=== PATIENT | male | born 1960 | race Caucasian/White ===

== ENCOUNTER 2025-05-20 15:16 | Outpatient (AMB) | payer OTHER, SELFPAY ==
--- NOTE | 2025-05-20 15:27 | A.OFFVIS_ITS ---
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 As a child he would stiffen up and if he wasn't moving around and limber. He would have difficulty getting started and had inabi lity to relax his muscles. He generally functions well and has learned to get around it but occasionally if he is going to do certain activities he uses Mexiletine 2 in am. He has it triggered by cold weather and exercise. Mostly affects legs and hands and occasionally in neck. It lasts 2- 3secs then he is fine. ?He uses a CPAP device in the last 3 months with a diagnosis of obstructive sleep apnea. He has hypertension and hyperlipidemia but has not yet started this step. His and children notes that his memory is not as sharp and he is concerned about that. Has been stable for 2 years. . [facility] Medical History (Updated 05/20/25 @ 15:30 by kEta Felix MD) Hyperlipidemia Hypertension RONN on CPAP MCI (mild cognitive impairment) Myotonia congenita Review of Systems Const Details: Sleep:? Difficulty getting to sleep?denies.? Difficulty maintaining sleep?admits .? Urge to move legs?denies.? Teeth grinding?denies.? Shouting or Kicking during sleep?denies.? Abnormal behavior during sleep?denies.? Excessive sleep?denies.? Snoring?admits.? Daytime sleepiness?denies.? ?? General/Constitutional:? Change in appetite?denies.? Chills?denies.? Fatigue?admits.? Fever?denies .? Weight gain?denies.? Weight loss?denies.? ?? Ophthalmologic:? Blurred vision?denies.? Diminished visual acuity?denies.? ?? ENT:? Stuffiness?denies.? Decreased hearing?denies.? Dry mouth?denies.? Ear pain?denies.? Nosebleed?denies.? Ringing in the ears?denies.? Sinus pain?denies .? Sore throat?denies.? Swollen glands?denies.? ?? Endocrine:? Cold intolerance?denies.? Excessive thirst?denies.? Frequent urination? denies.? Heat intolerance?denies.? ?? Respiratory:? Shortness of breath?denies.? Chest pain?denies.? Cough?denies.? ?? Breast:? Breast lump?denies.? Nipple discharge?denies.? ?? Cardiovascular:? Chest pain at rest?denies.? Chest pain with exertion?denies.? Claudication?denies.? Dizziness?denies.? Fluid accumulation in the legs?denies.? Irregular heartbeat?denies.? Palpitations?denies.? ?? Gastrointestinal:? Abdominal pain?denies.? Constipation?denies.? Diarrhea?denies.? Difficulty swallowing?denies.? Heartburn?denies.? Nausea?denies.? Rectal bleeding?denies.? ?? Hematology:? Easy bruising?denies.? Prolonged bleeding?denies.? ?? Genitourinary:? Frequent urination?denies.? Urgency?denies.? Incontinence?denies.? Erectile Dysfunction?denies.? ?? Musculoskeletal:? Neck pain?denies.? Back pain?denies.? Muscle aches?Muscle stiffness.? Painful joints?denies.? Sciatica?denies.? Weakness?denies.? ?? Podiatric:? Difficulty walking?denies.? Foot numbness?denies.? ?? Neurologic:? Difficulty swallowing?denies.? Balance difficulty?denies.? Coordination? normal.? Difficulty speaking?denies.? Dizziness?denies.? Fainting?denies.? Gait abnormality?denies.? Headache?denies.? Loss of strength?denies.? Loss of use of extremity?denies.? Low back pain?denies.? Memory loss?admits.? Seizures?denies.? Tics?denies.? Tingling/Numbness?denies.? Transient loss of vision?denies.? Tremor?denies.? ?? Psychiatric:? Anxiety?admits.? Auditory/visual hallucinations?denies.? Delusions? Agitation or aggression.? Depressed mood?denies.? Stressors?admits.? Substance abuse?denies.? Suicidal thoughts?denies.?? Physical Exam Neuro Other: Neurological: ? Abnormal neurological findings:?generalized muscular hypertrophy. No weakness. No percussion or action myotonia..? Mental Status:?alert and oriented X 3,?Normal attention, orientation, memory and affect.? Cranial Nerves:?Pupils are equal, round and reactive to light. Fundoscopy shows normal disc bilaterally. External occular muscles are intact. Visual vergara are full, no ptosis. Face is symmetrical, no facial weakness or droop. Facial sensations are normal. Tongue protrudes in midline. Palate elevates symmetrically. Shoulder shrugging is normal..? Motor Examination:?Normal muscle tone, bulk and strength,?No atrophy or fasciculations,?No drift of the extended upper extremities,?Deep tendon reflexes are 2+?,?Plantars are flexor?.? Motor Strength:? Proximal Muscles (out of 5): ?5 ? Distal Muscles (out of 5): ?5 ? Neck Flexors (out of 5): ?5 ? Neck Extensors (out of 5): ?5 ? Deltoid (out of 5): ?5 ? Biceps (out of 5): ?5 ? Triceps (out of 5): ?5 ? Serratus Anterior (out of 5): ?5 ? Wrist Extensors (out of 5): ?5 ? APB (out of 5): ?5 ? Finger Spread (out of 5): ?5 ? Ileopsoas (out of 5): ?5 ? Quadriceps (out of 5): ?5 ? Hamstrings (out of 5): ?5 ? Tibialis Anterior (out of 5): ?5 ? Peronei (out of 5): ?5 ? EDB (out of 5): ?5 ? Gastrocnemius (out of 5): ?5 ? Straight Leg Raising:?90 degrees.? Sensory Exam:?Normal light touch, temperature, pinprick, vibration and joint-position sensations?,?Rhomberg sign is absent.? Coordination:?no ataxia,?no titubation,?[id number], zwss-[id number] test and rapid alternating movements were normal.? Gait Exam:?Within normal limits.? Cerebellar Signs:?Lalcbf-gy-mwcb and lcko-mg-sjvu is normal,?no dysdiadochokinesia?.? Extrapyramidal System:?No tremor, rigidity with normal facial expressions,?No bradykinesia, no bradyphrenia. Normal arm swing and posture. No propulsion or retropulsion.? Speech:?Normal,?no dysphasia or dysarthria..? Mini Mental Status Exam: ? Level of Consciousness:?Alert.? Orientation:?Knows correct year, month, date, day and season,?Knows correct city, county and state. Knows correct location and floor.? Registration:?Able to register 3 objects.? Attention:?Serial 7's performed accurately.? Recall:?Able to recall 3 out of 3 objects.? Language:?Normal spontaneous speech, fluency, repetition,naming, comprehension, reading and writing.? Total Score ?30/30.? General Examination: ? GENERAL APPEARANCE:?normal,?in no acute distress.? HEAD:?normocephalic,?atraumatic.? EYES:?sclera non-icteric,?conjunctiva clear.? EARS:?auditory canal clear,?tympanic membrane intact, clear.? NOSE:?no lesions.? ORAL CAVITY:?gums normal,?mucosa moist,?no lesions.? THROAT:?clear.? NECK/THYROID:?no cervical lymphadenopathy,?thyroid normal,?neck supple, full range of motion,?no carotid bruit.? SKIN:?no rashes,?no significant birthmarks.? HEART:?S1, S2 normal,?no murmurs.? LUNGS:?clear anteriorly and posteriorly.? CHEST:?no gross rib deformity,?clear to auscultation.? BACK:?normal exam of spine.? EXTREMITIES:?no edema.? PERIPHERAL PULSES:?normal.? PSYCH:?alert, oriented,?cognitive function intact,?cooperative with exam.? 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 Code(s): G71.12 - Myotonia congenita Category: Medical (2) MCI (mild cognitive impairment): Comment: Stable memory Code(s): G31.84 - Mild cognitive impairment of uncertain or unknown etiology Category: Medical (3) RONN on CPAP: Code(s): G47.33 - Obstructive sleep apnea (adult) (pediatric); Z99.89 - Dependence on other enabling machines and devices Category: Medical Plan Continue Mexelitine 2 a day. Medications: New mexiletine 300 mg (2 x 150 mg) PO ONCE 180 caps 3RF 90 days Coding Level of Care Code New Pt Level 5 (70188) Diagnoses Myotonia congenita G71.12 MCI (mild cognitive impairment) G31.84 RONN on CPAP G47.33; Z99.89
--- OUTSIDE RECORDS SUMMARY | 2025-05-20 18:14 | XMS_ITS | Data Portability ---
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 Patient consented to video & audio visit Patient was located in the [facility]. Provider was located in the office. No other persons participated in the telemedicine visit except for the patient unless otherwise indicated here. Total time of visit was 32 minutes. [email or web address] Not available 06/24/2024 14:39:16 Plan of Treatment Reminders Order Date Submit Date Provider Last Modified By Organization Details Last Modified Time Details Appointments PE EST 2025 09:15A M aJun Calderon PA-C Not available Not available Not available Lab HbA1c (hemog lobin A1c), blood 2024 025 pmadden [facility] (Centralized Electronic Ordering - All Locations), Patient Can Go To The Location Of Their Choice, 04/08/2025 14:55:13 BMP, serum or plasma 2024 025 pmadden [facility] (Centralized Electronic Ordering - All Locations), Patient Can Go To The Location Of Their Choice, 04/08/2025 14:55:13 vitami n D, 25-hyd angela, total, serum 2024 PAUL [facility] (Centralized Electronic Ordering - All Locations), Patient Can Go To The Location Of Their Choice, 03/12/2025 08:07:20 HbA1c (hemog lobin A1c), blood 2024 PAUL [facility] (Centralized Electronic Ordering - All Locations), Patient Can Go To The Location Of Their Choice, 03/12/2025 08:07:19 lipid panel, serum 2024 PAUL [facility] (Centralized Electronic Ordering - All Locations), Patient Can Go To The Location Of Their Choice, 03/12/2025 08:07:18 CMP, serum or plasma 2024 PAUL [facility] (Centralized Electronic Ordering - All Locations), Patient Can Go To The Location Of Their Choice, 03/12/2025 08:07:18 CK (creat ine kinase ), total, serum 2024 PAUL [facility] (Centralized Electronic Ordering - All Locations), Patient Can Go To The Location Of Their Choice, 03/12/2025 08:07:19 HbA1c (hemog lobin A1c), blood 2023 PAUL [facility] (Centralized Electronic Ordering - All Locations), Patient Can Go To The Location Of Their Choice, 09/05/2024 06:08:11 TSH, ultra- sensit lionel, serum 2023 PAUL [facility] (Centralized Electronic Ordering - All Locations), Patient Can Go To The Location Of Their Choice, 09/05/2024 06:08:12 vitami n D, 25-hyd angela, total, serum 2023 PAUL [facility], [address], [place], [id number], 09/05/2024 06:08:12 lipid panel, serum 2023 PAUL [facility] (Centralized Electronic Ordering - All Locations), Patient Can Go To The Location Of Their Choice, 2025 06:08:11 CMP, serum or plasma 2023 024 PAUL [facility] (Centralized Electronic Ordering - All Locations), Patient Can Go To The Location Of Their Choice, [id number] 09/05/2024 06:08:10 TSH, serum or plasma 2023 024 PAUL [facility], [address], [address], [place], [address], 07/31/2023 15:47:59 lipid panel, serum 2023 024 PAUL [facility], [address], [address], [place], [id number], 07/31/2023 15:43:42 CMP, serum or plasma 2023 024 PAUL [facility], [address], [address], [place], [id number], 07/31/2023 15:43:40 CBC w/ auto diff 2023 024 PAUL [facility], [address], [address], [place], [place], [id number], 07/31/2023 16:24:05 HbA1c (hemog lobin A1c), blood 2023 024 PAUL [facility], [address], [address], [place], [address], 07/31/2023 18:09:53 testos terone , total, serum 2023 024 PALU [facility], [address], [address], [place], [address], 07/31/2023 15:47:58 Referral nutrit ionist /amadeo martin referr al 2024 025 Not available 09/11/2024 15:54:13 nutrit ionist /amadeo martin referr al 2023 024 Not available 07/23/2023 17:23:49 Procedures None record ed. Surgeries None record ed. Imaging None record ed. Medication Orders olmesa rtan 20 mg tablet 2024 025 akiko [facility] #[id number], [address] [place] [address], [id number], 04/06/2025 16:02:52 cholec alcife rol (vitam in D3) 1,250 mcg (50,00 0 unit) capsul e 2024 025 PAUL [id number], [address] [place] [address], [id number], 03/11/2025 08:57:50 sertra line 50 mg tablet 2023 024 [email or web address] [id number], [address] [place] [address], [id number], 09/11/2024 08:55:51 silden afil 50 mg tablet 2023 [id number] [address] [place], [address], 07/23/2023 14:04:35 Patient Targets Encounter Date Encounter Id Patient Goals Patient Target Last Modified By Organization Details Last Modified Time 07/23/2023 [id number] [facility] goal of Blood Pressure 140 / 90 Not available Not available Not available [facility] goal of Exercise level Not available Not available Not available [facility] goal of Tobacco Smoking Status Not available Not available Not available [facility] goal of Excess Body Weight Loss % 5 Not available Not available Not available 07/23/2023 [id number] Pt advised and agrees to eat a low salt low fat diet; to do moderate exercise (such as walking) 150 minutes per week; to limit alcohol intake (goal of 2 drinks per day or less for men or 1 for woman). and to monitor dietary sodium. Will monitor home blood pressures and bring readings to appointments. Patient preferences and goals incorporated in plan and updated/modified as needed to reflect progress toward goal. Pt advised and agrees to work on self-monitoring behaviors; begin an appropriate diet for weight loss (such as a low carbohydrate diet), to do moderate exercise (such as walking) for approximately 150 minutes per week; and to identify desirable and timely rewards that will reinforce achievement of specific weight loss goals. pmadden Not available 07/23/2023 13:50:49 09/11/2024 [id number] [facility] goal of Blood Pressure 140 / 90 Not available Not available Not available [facility] goal of Exercise level Not available Not available Not available [facility] goal of Tobacco Smoking Status Not available Not available Not available [facility] goal of Excess Body Weight Loss % 5 Not available Not available Not available Ongoing of LDL Direct <100 Not available Not available Not available Ongoing of LDL Direct yearly Not available Not available Not available 09/11/2024 [id number] Pt advised and agrees to work on self-monitoring behaviors; begin an appropriate diet for weight loss (such as a low carbohydrate diet), to do moderate exercise (such as walking) for approximately 150 minutes per week; and to identify desirable and timely rewards that will reinforce achievement of specific weight loss goals. Pt agrees to follow low fat diet, avoid saturated fats , decrease carbohydrate intake to 45 - 50 gm per meal , pt agrees to develop a regular pattern of exercise such as walking 30 minutes a day 3 times a week, Pt will keep a record of exercise and activity level Patient preferences and goals incorporated in plan and updated/modified as needed to reflect progress toward goal. Pt advised and agrees to eat a low salt low fat diet; to do moderate exercise (such as walking) 150 minutes per week; to limit alcohol intake (goal of 2 drinks per day or less for men or 1 for woman). and to monitor dietary sodium. Will monitor home blood pressures and bring readings to appointments. Patient preferences and goals incorporated in plan and updated/modified as needed to reflect progress toward goal. 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 and to monitor dietary sodium. Will monitor home blood pressures and bring readings to appointments. Patient preferences and goals incorporated in plan and updated/modified as needed to reflect progress toward goal. pmadden Not available 03/11/2025 09:46:53 Patient Instructions Encounter Date Encounter Id Patient Instructions Last Modified By Organization Details Last Modified Time 07/23/2023 [id number] A healthy lifestyle: care instructions pmadden Not available 07/23/2023 13:58:41 Well Visit 50 to 65: Care Instructions pmadden Not available 07/23/2023 13:58:42 Starting a Weight-Loss Plan: Care Instructions pmadden Not available 07/23/2023 13:58:42 Nutrition Referral and Weight Management Follow-up Information pmadden Not available 07/23/2023 13:58:41 Medications (OTC , herbal therapies, supplements) reviewed and reconciled with patient and or caregiver, including potential side effects, drug interactions, instructions, and the consequences of not taking medication. Reviewed potential barriers to medication adherence, such as side effects from medication or cost of medication. pmadden Not available 07/23/2023 13:22:07 06/24/2024 [id number] learning about stress pmadden Not available 06/24/2024 14:43:34 Mental Health Information pmadden Not available 06/24/2024 14:43:34 Medications (OTC , herbal therapies, supplements) reviewed and reconciled with patient and or caregiver, including potential side effects, drug interactions, instructions, and the consequences of not taking medication. Reviewed potential barriers to medication adherence, such as side effects from medication or cost of medication. pmadden Not available 06/24/2024 14:43:47 09/11/2024 [id number] Well Visit 50 to 65: Care Instructions pmadden Not available 09/11/2024 10:10:39 A healthy lifestyle: care instructions pmadden Not available 09/11/2024 10:10:39 Starting a Weight-Loss Plan: Care Instructions pmadden Not available 09/11/2024 10:10:39 Nutrition Referral and Weight Management Follow-up Information pmadden Not available 09/11/2024 10:10:39 Medications (OTC , herbal therapies, supplements) reviewed and reconciled with patient and or caregiver, including potential side effects, drug interactions, instructions, and the consequences of not taking medication. Reviewed potential barriers to medication adherence, such as side effects from medication or cost of medication. pmadden Not available 09/11/2024 10:09:44 03/11/2025 [id number] dash diet: care instructions pmadden Not available 03/11/2025 09:45:45 high blood pressure: care instructions pmadden Not available 03/11/2025 09:45:45 Medications (OTC , herbal therapies, supplements) reviewed and reconciled with patient and or caregiver, including potential side effects, drug interactions, instructions, and the consequences of not taking medication. Reviewed potential barriers to medication adherence, such as side effects from medication or cost of medication. pmadden Not available 03/11/2025 09:34:37 04/08/2025 [id number] potassium-restri c gilles diet: care instructions pmadden Not available 04/08/2025 14:55:13 Medications (OTC , herbal therapies, supplements) reviewed and reconciled with patient and or caregiver, including potential side effects, drug interactions, instructions, and the consequences of not taking medication. Reviewed potential barriers to medication adherence, such as side effects from medication or cost of medication. 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 Refer ral for Body mass index 30+ - obesity Referring Physician: Jaun Calderon, Internal Medicine, Encounter Date: 09/11/2024 Results Created Date Observation Date Name Description Value Unit Range Abnormal Flag Note LastModifiedBy Organization Detail LastModifiedTime 07/31/19 24 07/31/2023 COMPR EHENS LIONEL METAB OLIC PANL glucose 104 mg/dL (70-99 ) high Not Available [facility] (Centralized Electronic Ordering - All Locations) Patient Can Go To The Location Of Their Choice, [id number] 07/31/2023 15:43:40 07/31/19 24 07/31/2023 COMPR EHENS LIONEL METAB OLIC PANL BUN 19 mg/dL (8-23) Not Available [facility] (Centralized Electronic Ordering - All Locations) Patient Can Go To The Location Of Their Choice, 07/31/2023 15:43:40 07/31/19 24 07/31/2023 COMPR EHENS LIONEL METAB OLIC PANL creatinine 1.4 mg/dL (0.7-1 .2) high Not Available [facility] (Centralized Electronic Ordering - All Locations) Patient Can Go To The Location Of Their Choice, 07/31/2023 15:43:40 07/31/19 24 07/31/2023 COMPR EHENS LIONEL METAB OLIC PANL sodium 141 mmol/ L (133-1 45) Not Available [facility] (Centralized Electronic Ordering - All Locations) Patient Can Go To The Location Of Their Choice, 07/31/2023 15:43:40 07/31/19 24 07/31/2023 COMPR EHENS LIONEL METAB OLIC PANL potassium 4.6 mmol/ L (3.6-5 .2) Not Available [facility] (Centralized Electronic Ordering - All Locations) Patient Can Go To The Location Of Their Choice, 07/31/2023 15:43:40 07/31/19 24 07/31/2023 COMPR EHENS LIONEL METAB OLIC PANL chloride 104 mmol/ L (98-10 7) Not Available [facility] (Centralized Electronic Ordering - All Locations) Patient Can Go To The Location Of Their Choice, 07/31/2023 15:43:40 07/31/19 24 07/31/2023 COMPR EHENS LIONEL METAB OLIC PANL bicarbonate 27 mmol/ L (22-29 ) Not Available [facility] (Centralized Electronic Ordering - All Locations) Patient Can Go To The Location Of Their Choice, 07/31/2023 15:43:40 07/31/1907/31/2023 COMPR EHENS LIONEL METAB OLIC PANL anion gap 10 (4-17) Not Available [facility] (Centralized Electronic Ordering - All Locations) Patient Can Go To The Location Of Their Choice, 07/31/2023 15:43:40 07/31/19 24 07/31/2023 COMPR EHENS LIONEL METAB OLIC PANL albumin 4.1 gm/dL (3.4-4 .8) Not Available [facility] (Centralized Electronic Ordering - All Locations) Patient Can Go To The Location Of Their Choice, 07/31/2023 15:43:40 07/31/19 24 07/31/2023 COMPR EHENS LIONEL METAB OLIC PANL calcium 9.3 mg/dL (8.6-1 0.5) Not Available [facility] (Centralized Electronic Ordering - All Locations) Patient Can Go To The Location Of Their Choice, 07/31/2023 15:43:40 07/31/19 24 07/31/2023 COMPR EHENS LIONEL METAB OLIC PANL bilirubin,to yobani 0.5 mg/dL (0-1.2 ) Not Available [facility] (Centralized Electronic Ordering - All Locations) Patient Can Go To The Location Of Their Choice, 07/31/2023 15:43:40 07/31/19 24 07/31/2023 COMPR EHENS LIONEL METAB OLIC PANL total protein 6.8 gm/dL (6.2-8 .2) Not Available [facility] ([facility]ized Electronic Ordering - All Locations) Patient Can Go To The Location Of Their Choice, 07/31/2023 15:43:40 07/31/19 24 07/31/2023 COMPR EHENS LIONEL METAB OLIC PANL Ag ratio 1.5 Not Available [facility] (Centralized Electronic Ordering - All Locations) Patient Can Go To The Location Of Their Choice, 07/31/2023 15:43:40 07/31/19 24 07/31/2023 COMPR EHENS LIONEL METAB OLIC PANL AST 26 U/L (0-40) Not Available [facility] ([facility]ized Electronic Ordering - All Locations) Patient Can Go To The Location Of Their Choice, 07/31/2023 15:43:40 07/31/19 24 07/31/2023 COMPR EHENS LIONEL METAB OLIC PANL alk phos 65 U/L (40-12 9) Not Available [facility] ([facility] Ordering - All Locations) Patient Can Go To The Location Of Their Choice, 07/31/2023 15:43:40 07/31/19 24 07/31/2023 COMPR EHENS LIONEL METAB OLIC PANL ALT 33 U/L (0-41) Not Available [facility] ([facility] Electronic Ordering - All Locations) Patient Can Go To The Location Of Their Choice, 07/31/2023 15:43:40 07/31/1907/31/2023 COMPR EHENS LIONEL METAB OLIC PANL estimated GFR creatinine 59 mL/mi n/1.7 3_M2 Creat inine based estim ated glome rular filtr ation (eGFR ) in adult s is calcu lated using the Natio nal Kidne y Found ation recom leo d 2020 CKD-E PI equat ion. Estim ates GFR from serum creat inine , age and sex. Not Available [facility] ([facility]ized Electronic Ordering - All Locations) Patient Can Go To The Location Of Their Choice, 07/31/2023 15:43:40 07/31/1907/31/2023 LIPID PANEL cholesterol, total 249 mg/dL (<200) high Not Available [facility] ([facility] - All Locations) Patient Can Go To The Location Of Their Choice, 07/31/2023 15:43:42 07/31/1907/31/2023 LIPID PANEL triglyceride 204 mg/dL (<150) high Not Available [facility] ([facility] Locations) Patient Can Go To The Location Of Their Choice, 07/31/2023 15:43:42 07/31/1907/31/2023 LIPID PANEL HDL chol 59 mg/dL (>39) Not Available [facility] ([facility] Electronic Ordering - All Locations) Patient Can Go To The Location Of Their Choice, 07/31/2023 15:43:42 07/31/1907/31/2023 LIPID PANEL LDL cholesterol, calculated 149 mg/dL (0-130 ) high Not Available [facility] ([facility] Electronic Ordering - All Locations) Patient Can Go To The Location Of Their Choice, 07/31/2023 15:43:42 07/31/1907/31/2023 LIPID PANEL non HDL cholesterol (calc) 190 mg/dL (<160) high Not Available [facility] ([facility] - All Locations) Patient Can Go To The Location Of Their Choice, 07/31/2023 15:43:42 07/31/1907/31/2023 TESTO STERO NE testosterone 392 NG/dL (280-8 00) Not Available [facility] ([facility] Ordering - All Locations) Patient Can Go To The Location Of Their Choice, 07/31/2023 15:47:58 07/31/1907/31/2023 TSH WITH REFLE X TO FT4 TSH 7.38 uIU/m L (0.4-4 .2) high Not Available [facility] ([facility] Order[facility] - All Locations) Patient Can Go To The Location Of Their Choice, 07/31/2023 15:47:59 07/31/1907/31/2023 FREE T4 free T4 1.09 NG/dL (0.70- 1.80) Not Available [facility] ([facility] Ordering - All Locations) Patient Can Go To The Location Of Their Choice, 07/31/2023 16:15:24 07/31/1907/31/2023 COMPL ETE BLOOD COUNT WBC 7.3 K/mm3 (4.0-1 1.0) Not Available [facility] ([facility] Ordering - All Locations) Patient Can Go To The Location Of Their Choice, 07/31/2023 16:24:05 07/31/1907/31/2023 COMPL ETE BLOOD COUNT RBC 5.29 M/mm3 (4.70- 6.10) Not Available [facility] ([facility] Ordering - All Locations) Patient Can Go To The Location Of Their Choice, 07/31/2023 16:24:05 07/31/1907/31/2023 COMPL ETE BLOOD COUNT HGB 15.9 gm/dL (13.7- 17.1) Not Available [facility] ([facility] Ordering - All Locations) Patient Can Go To The Location Of Their Choice, 07/31/2023 16:24:07/31/1907/31/2023 COMPL ETE BLOOD COUNT HCT 48.9 % (40.5- 50.0) Not Available [facility] ([facility] Ordering - All Locations) Patient Can Go To The Location Of Their Choice, 07/31/2023 16:24:05 07/31/1907/31/2023 COMPL ETE BLOOD COUNT MCV 92.4 fL (80.0- 94.0) Not Available [facility] ([facility] Order[facility] - All Locations) Patient Can Go To The Location Of Their Choice, 07/31/2023 16:24:07/31/1907/31/2023 COMPL ETE BLOOD COUNT MCH 30.1 pg (27.0- 34.0) Not Available [facility] ([facility] Ordering - All Locations) Patient Can Go To The Location Of Their Choice, 07/31/2023 16:24:07/31/1907/31/2023 COMPL ETE BLOOD COUNT MCHC 32.5 g/dL (33.0- 37.0) low Not Available [facility] ([facility] Order[facility] - All Locations) Patient Can Go To The Location Of Their Choice, 07/31/2023 16:24:07/31/1907/31/2023 COMPL ETE BLOOD COUNT plt 271 K/mm3 (150-4 60) Not Available [facility] ([facility] Order[facility] - All Locations) Patient Can Go To The Location Of Their Choice, 07/31/2023 16:24:07/31/1907/31/2023 COMPL ETE BLOOD COUNT RDW-SD 42.4 fL (<47.0 ) Not Available [facility] ([facility] Order[facility] - All Locations) Patient Can Go To The Location Of Their Choice, 07/31/2023 16:24:07/31/1907/31/2023 COMPL ETE BLOOD COUNT MPV 9.9 fL (9.4-1 2.4) Not Available [facility] ([facility] Order[facility] - All Locations) Patient Can Go To The Location Of Their Choice, 07/31/2023 16:24:07/31/1907/31/2023 COMPL ETE BLOOD COUNT automated NRBC 0.0 #/100 _WBC' s Not Available [facility] ([facility] Ordering - All Locations) Patient Can Go To The Location Of Their Choice, 07/31/2023 16:24:07/31/1907/31/2023 COMPL ETE BLOOD COUNT abs. NRBC 0.0 K/mm3 Not Available [facility] ([facility] Ordering - All Locations) Patient Can Go To The Location Of Their Choice, 07/31/2023 16:24:07/31/1907/31/2023 HEMOG LOBIN A1C hemoglobin A1C 5.6 % (4.0-5 .6) MONIT ORING : In known diabe tic patie nts, hemog lobin A1c targe ts shoul d be discu ssed with healt h care provi ciro. DIAGN OSTIC USE: The Ameri can Diabe sandie Assoc iatio n (ADA) and the World Healt h Organ izati on (WHO) recom mend the use of HbA1c to diagn ose diabe sandie using a thres hold of 6.5%. Patie nts who have an HbA1c betwe en 5.7% and 6.4% are consi dered at incre ased risk for devel oping diabe sandie in the futbrina krysta CAUTI ON: False ly low HbA1c resul ts may be obser ida in patie nts with hemol ytic anemi a, homoz ygous forms of abnor mal hemog lobin (e.g. SS, CC, SC), pregn gabriel, recen t blood loss or hemog lobin F great er than 7%. Fruct osami ne may be used as an alter fili test in these cases . REFER ENCE: ADA: Stand ards of Medic al Care in Diabe sandie 2019, The Journ al of Clini xavier and Appli ed Resea rc and Educa tion Volum e 43, Suppl ement 1 Not Available [facility] ([facility]ized [facility] Ordering - All Locations) Patient Can Go To The Location Of Their Choice, [id number] 07/31/2023 18:09:53 09/04/19 25 09/04/2024 COMP. METAB OLIC PANEL (14) glucose 111 mg/dL 70-99 above high normal Not Available [facility] ([facility]) [address] [facility], [place], [address], 09/05/2024 06:08:10 09/04/19 25 09/04/2024 COMP. METAB OLIC PANEL (14) BUN 20 mg/dL 8-27 normal Not Available [facility] ([facility]) [address] [facility], [place], [address], 09/05/2024 06:08:10 09/04/19 25 09/04/2024 COMP. METAB OLIC PANEL (14) creatinine 1.36 mg/dL 0.76-1 .27 above high normal Not Available [facility] ([facility]) [address] [place], [address], 09/05/2024 06:08:10 09/04/19 25 09/04/2024 COMP. METAB OLIC PANEL (14) eGFR 59 mL/mi n/1.7 3 >59 below low normal Not Available [facility] ([facility]) [address] [facility], [place], [address], 09/05/2024 06:08:10 09/04/19 25 09/04/2024 COMP. METAB OLIC PANEL (14) BUN/creatini ne ratio 15 10-24 normal Not Available [facility] ([facility]) [address] [facility], [place], [address], 09/05/2024 06:08:10 09/04/19 25 09/04/2024 COMP. METAB OLIC PANEL (14) sodium 143 mmol/ L 134-14 4 normal Not Available [facility] ([facility]) [address] [place], [address], 09/05/2024 06:08:10 09/04/19 25 09/04/2024 COMP. METAB OLIC PANEL (14) potassium 4.4 mmol/ L 3.5-5. 2 normal Not Available [facility] ([facility]) [address] [place], [address], 09/05/2024 06:08:10 09/04/19 25 09/04/2024 COMP. METAB OLIC PANEL (14) chloride 104 mmol/ L 96-106 normal Not Available [facility] ([facility]) [address] [place], [address], 09/05/2024 06:08:10 09/04/19 25 09/04/2024 COMP. METAB OLIC PANEL (14) carbon dioxide, total 25 mmol/ L 20-29 normal Not Available [facility] ([facility]) [address] [facility] [place], [address], 09/05/2024 06:08:10 09/04/19 25 09/04/2024 COMP. METAB OLIC PANEL (14) calcium 9.4 mg/dL 8.6-10 .2 normal Not Available [facility] ([facility]) [address] [facility] [place], [address], 09/05/2024 06:08:10 09/04/19 25 09/04/2024 COMP. METAB OLIC PANEL (14) protein, total 7.0 g/dL 6.0-8. 5 normal Not Available [facility] ([facility]) [address] [facility] [place], [address], 09/05/2024 06:08:10 09/04/19 25 09/04/2024 COMP. METAB OLIC PANEL (14) albumin 4.2 g/dL 3.9-4. 9 normal Not Available [facility] ([facility]) [address] [facility] [place], [address], 09/05/2024 06:08:10 09/04/19 25 09/04/2024 COMP. METAB OLIC PANEL (14) globulin, total 2.8 g/dL 1.5-4. 5 Not Available [facility] ([facility]) [address] [facility] [place], [address], 09/05/2024 06:08:10 09/04/19 25 09/04/2024 COMP. METAB OLIC PANEL (14) bilirubin, total 0.6 mg/dL 0.0-1. 2 normal Not Available [facility] ([facility]) [address] [facility] [place], [address], 09/05/2024 06:08:10 09/04/19 25 09/04/2024 COMP. METAB OLIC PANEL (14) alkaline phosphatase 76 IU/L 44-121 normal Not Available [facility] ([facility]) [address] [facility] [place], [address], 09/05/2024 06:08:10 09/04/19 25 09/04/2024 COMP. METAB OLIC PANEL (14) AST (SGOT) 32 IU/L 0-40 normal Not Available [facility] ([facility]) [address] [facility] [place], [address], 09/05/2024 06:08:10 09/04/19 25 09/04/2024 COMP. METAB OLIC PANEL (14) ALT (SGPT) 57 IU/L 0-44 above high normal Not Available [facility] ([facility]) [address] [facility] [place], [address], 09/05/2024 06:08:10 09/04/19 25 09/05/2024 LIPID PANEL cholesterol, total 281 mg/dL 100-19 9 above high normal Not Available [facility] ([facility]) [address] [place], [address], 09/05/2024 06:08:11 09/04/19 25 09/05/2024 LIPID PANEL triglyceride s 129 mg/dL 0-149 normal Not Available [facility] ([facility]) [address] [place], [address], 09/05/2024 06:08:11 09/04/19 25 09/05/2024 LIPID PANEL HDL cholesterol 67 mg/dL >39 normal Not Available [facility] ([facility]) [address] [place], [address], 09/05/2024 06:08:11 09/04/19 25 09/05/2024 LIPID PANEL VLDL cholesterol xavier 23 mg/dL 5-40 Not Available [facility] ([facility]) [address] [place], [address], 09/05/2024 06:08:11 09/04/19 25 09/05/2024 LIPID PANEL LDL chol calc ([facility]) 191 mg/dL 0-99 above high normal Not Available [facility] ([facility]) [address] [facility], [place], [address], 09/05/2024 06:08:11 09/04/19 25 09/05/2024 LIPID PANEL LDL calc comment: COMMEN T Consi ciro evalu ating for Famil ial Hyper elda stero lemia (FH), if clini karla indic ated. Not Available [facility] ([facility]) [address] [facility], [place], [address], 09/05/2024 06:08:11 09/04/19 25 09/04/2024 HEMOG LOBIN A1C hemoglobin A1C 5.7 % 4.8-5. 6 above high normal Predi abete s: 5.7 - 6.4 Diabe sandie: >6.4 Glyce naveen contr ol for adult s with diabe sandie: <7.0 Not Available [facility] ([facility]) [address] [facility], [place], [address], 09/05/2024 06:08:11 09/04/19 25 09/05/2024 VITAM IN D, 25-HY DROXY vitamin D, 25-hydroxy 11.2 NG/mL 30.0-1 00.0 below low normal Vitam in D defic iency has been defin ed by the Insti tute of Medic ine and an Endoc rine Socie ty pract ice guide line as a level of serum 25-OH vitam in D less than 20 ng/mL (1,2) . The Endoc rine Socie ty went on to furth er defin e vitam in D insuf ficie ncy as a level betwe en 21 and 29 ng/mL (2). 1. IOM (Inst itute of Medic ine). 2010. Dieta ry refer ence intak es for calci um and D. Aubrey salter [place]: The [facility] . 2. Miguel A RAMOS, Ricky felton [place], Karthik off-F errar i BOBO, et al. Evalu ation , treat ment, and preve ntion of vitam in D defic iency : an Endoc rine Socie ty clini xavier pract ice guide line. JCEM. 2010; 96(7) :1911 -30. Not Available [facility] ([facility]) [address] [facility] [place], [address], 09/05/2024 06:08:12 09/04/19 25 09/05/2024 TSH RFX ON ABNOR MAL TO FREE T4 TSH 5.130 uIU/m L 0.450- 4.500 above high normal Not Available [facility] ([facility]) [address] [facility] [place], [address], 09/05/2024 06:08:12 09/04/19 25 09/05/2024 TSH RFX ON ABNOR MAL TO FREE T4 T4,free (direct) 1.15 NG/dL 0.82-1 .77 normal Not Available [facility] ([facility]) [address] [place], [address], 09/05/2024 06:08:12 03/11/20 25 03/11/2025 COMP. METAB OLIC PANEL (14) glucose 105 mg/dL 70-99 above high normal Not Available [facility] ([facility]) [address] [place], [address], 03/12/2025 08:07:18 03/11/20 25 03/11/2025 COMP. METAB OLIC PANEL (14) BUN 14 mg/dL 8-27 normal Not Available [facility] ([facility]) [address] [place], [address], 03/12/2025 08:07:18 03/11/20 25 03/11/2025 COMP. METAB OLIC PANEL (14) creatinine 1.26 mg/dL 0.76-1 .27 normal Not Available [facility] ([facility]) [address] [place], [address], 03/12/2025 08:07:18 03/11/20 25 03/11/2025 COMP. METAB OLIC PANEL (14) eGFR 64 mL/mi n/1.7 3 >59 normal Not Available [facility] ([facility]) [address] [facility], [place], [address], 03/12/2025 08:07:18 03/11/20 25 03/11/2025 COMP. METAB OLIC PANEL (14) BUN/creatini ne ratio 11 10-24 normal Not Available [facility] ([facility]) [address] [facility], [place], [address], 03/12/2025 08:07:18 03/11/20 25 03/11/2025 COMP. METAB OLIC PANEL (14) sodium 144 mmol/ L 134-14 4 normal Not Available [facility] ([facility]) [address] [facility], [place], [address], 03/12/2025 08:07:18 03/11/20 25 03/11/2025 COMP. METAB OLIC PANEL (14) potassium 5.5 mmol/ L 3.5-5. 2 above high normal Not Available [facility] ([facility]) [address] [facility], [place], [address], 03/12/2025 08:07:18 03/11/20 25 03/11/2025 COMP. METAB OLIC PANEL (14) chloride 104 mmol/ L 96-106 normal Not Available [facility] ([facility]) [address] [facility], [place], [address], 03/12/2025 08:07:18 03/11/20 25 03/11/2025 COMP. METAB OLIC PANEL (14) carbon dioxide, total 22 mmol/ L 20-29 normal Not Available [facility] ([facility]) [address] [place], [address], 03/12/2025 08:07:18 03/11/20 25 03/11/2025 COMP. METAB OLIC PANEL (14) calcium 9.8 mg/dL 8.6-10 .2 normal Not Available [facility] ([facility]) [address] [place], [address], 03/12/2025 08:07:18 03/11/20 25 03/11/2025 COMP. METAB OLIC PANEL (14) protein, total 7.3 g/dL 6.0-8. 5 normal Not Available [facility] ([facility]) [address] [place], [address], 03/12/2025 08:07:18 03/11/20 25 03/11/2025 COMP. METAB OLIC PANEL (14) albumin 4.4 g/dL 3.9-4. 9 normal Not Available [facility] ([facility]) [address] [place], [address], 03/12/2025 08:07:18 03/11/20 25 03/11/2025 COMP. METAB OLIC PANEL (14) globulin, total 2.9 g/dL 1.5-4. 5 Not Available [facility] ([facility]) [address] [place], [address], 03/12/2025 08:07:18 03/11/20 25 03/11/2025 COMP. METAB OLIC PANEL (14) bilirubin, total 0.7 mg/dL 0.0-1. 2 normal Not Available [facility] ([facility]) [address] [place], [address], 03/12/2025 08:07:18 03/11/20 25 03/11/2025 COMP. METAB OLIC PANEL (14) alkaline phosphatase 79 IU/L 44-121 normal Not Available [facility] ([facility]) [address] [place], [address], 03/12/2025 08:07:18 03/11/20 25 03/11/2025 COMP. METAB OLIC PANEL (14) AST (SGOT) 29 IU/L 0-40 normal Not Available [facility] ([facility]) [address] [facility] [place], [address], 03/12/2025 08:07:18 03/11/20 25 03/11/2025 COMP. METAB OLIC PANEL (14) ALT (SGPT) 38 IU/L 0-44 normal Not Available [facility] ([facility]) [address] [facility] [place], [address], 03/12/2025 08:07:18 03/11/20 25 03/11/2025 LIPID PANEL cholesterol, total 266 mg/dL 100-19 9 above high normal Not Available [facility] ([facility]) [address] [facility] [place], [address], 03/12/2025 08:07:18 03/11/20 25 03/11/2025 LIPID PANEL triglyceride s 96 mg/dL 0-149 normal Not Available [facility] ([facility]) [address] [facility] [place], [address], 03/12/2025 08:07:18 03/11/20 25 03/11/2025 LIPID PANEL HDL cholesterol 75 mg/dL >39 normal Not Available [facility] ([facility]) [address] [facility] [place], [address], 03/12/2025 08:07:18 03/11/20 25 03/11/2025 LIPID PANEL VLDL cholesterol xavier 16 mg/dL 5-40 Not Available [facility] ([facility]) [address] [facility] [place], [address], 03/12/2025 08:07:18 03/11/20 25 03/11/2025 LIPID PANEL LDL chol calc ([facility]) 175 mg/dL 0-99 above high normal Not Available [facility] (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) [address] [facility] [place], [address], 03/12/2025 08:07:18 03/11/20 25 03/12/2025 CK, TOTAL creatine kinase,total 251 U/L 41-331 normal Not Available [facility] ([facility]) [address] [facility], [place], [address], 03/12/2025 08:07:19 03/11/2003/11/2025 HEMOG LOBIN A1C hemoglobin A1C 5.7 % 4.8-5. 6 above high normal Predi abete s: 5.7 - 6.4 Diabe sandie: >6.4 Glyce naveen contr ol for adult s with diabe sandie: <7.0 Not Available [facility] ([facility]) [address] [facility], [place], [address], 03/12/2025 08:07:19 03/11/2003/12/2025 VITAM IN D, 25-HY DROXY vitamin D, 25-hydroxy 44.3 NG/mL 30.0-1 00.0 Vitam in D defic iency has been defin ed by the Insti tute of Medic ine and an Endoc rine Socie ty pract ice guide line as a level of serum 25-OH vitam in D less than 20 ng/mL (1,2) . The Endoc rine Socie ty went on to furth er defin e vitam in D insuf ficie ncy as a level betwe en 21 and 29 ng/mL (2). 1. IOM (Inst itute of Medic ine). 2010. Dieta ry refer ence leigha es for calci um and D. Aubrey salter [place]: The Natio nal [facility] Press . 2. Miguel A lawson MF, Ricky ey [place], Karthik off-F errar i BOBO, et al. Evalu ation , treat ment, and preve ntion of vitam in D defic iency : an Endoc rine Socie ty clini xavier pract ice guide line. JCEM. 2010; 96(7) :1911 -30. Not Available [facility] ([facility]) [address] [facility] [place], [address], 03/12/2025 08:07:20 04/08/2004/09/2025 BASIC METAB OLIC PANEL (8) glucose 92 mg/dL 70-99 normal Not Available [facility] ([facility]) [address] [facility] [place], [address], 04/09/2025 08:07:43 04/08/2004/09/2025 BASIC METAB OLIC PANEL (8) BUN 22 mg/dL 8-27 normal Not Available [facility] ([facility]) [address] [facility] [place], [address], 04/09/2025 08:07:43 04/08/2004/09/2025 BASIC METAB OLIC PANEL (8) creatinine 1.16 mg/dL 0.76-1 .27 normal Not Available [facility] ([facility]) [address] [facility] [place], [address], 04/09/2025 08:07:43 04/08/2004/09/2025 BASIC METAB OLIC PANEL (8) eGFR 71 mL/mi n/1.7 3 >59 normal Not Available [facility] ([facility]) [address] [facility] [place], [address], 04/09/2025 08:07:43 04/08/2004/09/2025 BASIC METAB OLIC PANEL (8) BUN/creatini ne ratio 19 10-24 normal Not Available [facility] ([facility]) [address] [facility] [place], [address], 04/09/2025 08:07:43 04/08/2004/09/2025 BASIC METAB OLIC PANEL (8) sodium 145 mmol/ L 134-14 4 above high normal Not Available [facility] ([facility]) [address] [place], [address], 04/09/2025 08:07:43 04/08/2004/09/2025 BASIC METAB OLIC PANEL (8) potassium 4.2 mmol/ L 3.5-5. 2 normal Not Available [facility] ([facility]) [address] [place], [address], 04/09/2025 08:07:43 04/08/2004/09/2025 BASIC METAB OLIC PANEL (8) chloride 106 mmol/ L 96-106 normal Not Available [facility] ([facility]) [address] [place], [address], 04/09/2025 08:07:43 04/08/2004/09/2025 BASIC METAB OLIC PANEL (8) carbon dioxide, total 21 mmol/ L 20-29 normal Not Available [facility] ([facility]) [address] [place], [address], 04/09/2025 08:07:43 04/08/2004/09/2025 BASIC METAB OLIC PANEL (8) calcium 8.8 mg/dL 8.6-10 .2 normal Not Available [facility] ([facility]) [address] [place], [address], 04/09/2025 08:07:43 Result Notes None recorded. 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 Not Available [facility] 3 13:24:37 Hyperlipid emia 89991774 Active 2018 Not Available [facility] 3 13:24:37 Nasal congestion 70122366 Completed 201907/23/2023 Letty hernandes MA null, [facility] 4 13:06:00 Insomnia 075570900 Active 2019 Not Available [facility] 3 13:24:37 Anxiety 96359037 Active 2019 Not Available [facility] 3 13:24:37 Major depressive disorder 186071680 Active 2019 Not Available [facility] 3 13:24:37 Skin lesion 17285163 Active 2020 Not Available [facility] 3 13:24:37 Subclinica l hypothyroi dism 83121251 Active 2020 Not Available [facility] 3 13:24:37 Chronic kidney disease stage 3 426878843 Completed 202009/18/2022 [facility] 2020 GFR 59 Jaun Calderon PA-C [address], [place], [address] , [facility] 3 10:22:15 Prediabete s 252581084 Active 2021 Jaun Calderon PA-C [address], [place], [address] , [facility] 5 14:49:23 Hypertensi ve renal disease 76378169 Active 2021 Not Available [facility] 3 13:24:37 Chronic kidney disease stage 2 218602567 Active 2022 Not Available [facility] 3 13:24:37 History of polyp of colon 870514848 Active 2023 Jaun Calderon PA-C [address], [place], [address] , [facility] 4 13:20:50 Opposition al defiant disorder 67370428 Active 2023 Jaun Calderon PA-C [address], [place], [address] , [facility] 4 14:06:55 Harmful pattern of use of alcohol 17308801 Active 2023 Jauntonya Calderon PA-C [address] [facility] [address], [place], [address] , [facility] 4 14:42:06 Serum potassium level above reference range 393977289 Active 2024 Jauntonya Calderon PA-C [address] [facility] [address], [place], [address] , [facility] 5 15:47:29 Problem Notes None recorded. Procedures Surgical History Date Name Laterality Status Provider Name and Address Organization Details Recorded Time 4 Colonoscopy completed Roseann Oates [facility] 05/30/2024 08:46:58 9 Colonoscopy completed Karo Middleton [facility] 02/13/2019 10:17:47 2 [facility] 08:53:39 Imaging Results None recorded. Procedure Notes None recorded. Medical Equipment None Reported. Allergies No known drug allergies Medications Name Sig Start Date Stop Date Status Note LastModified by Organization Details LastModified Time amoxicillin 500 mg capsule TAKE 1 CAPSULES BY MOUTH BY MOUTH EVERY 8 HOURS UNTIL FINISHED 09/18 completed Not Available Not Available Not Available Delsym 12 hour 30 mg/5 mL oral suspension, extended release Take 10 mL every 12 hours by oral route as needed. 03/16 completed Not Available Not Available Not Available trazodone 50 mg tablet TAKE 1 TABLET BY MOUTH EVERY DAY 04/07 completed Not Available Not Available Not Available sildenafil 50 mg tablet Take 1 tablet every day by oral route as needed. 2023 active Not Available Not Available Not Avai lable azithromyci n 250 mg tablet TAKE 2 TABLETS BY MOUTH TODAY, THEN TAKE 1 TABLET DAILY FOR 4 DAYS 07/23 completed Not Available Not Available Not Available hydrocodone 5 mg-acetamin ophen 325 mg tablet TAKE 1 TABLET BY MOUTH EVERY 6 HOURS NEEDED 09/18 completed Not Available Not Available Not Available citalopram 20 mg tablet Take 1 tablet every day by oral route for 30 days. 11/25 completed Not Available Not Available Not Available benzonatate 100 mg capsule Take 1 capsule 3 times a day by oral route as directed for 5 days. 03/16 completed Not Available Not Available Not Available mexiletine 150 mg capsule TAKE 2 CAPSULES BY MOUTH EVERY 8 HOURS DIRECTED BY active PRN Not Available Not Available No t Available metronidazo le 0.75 % topical cream APPLY A THIN LAYER TO THE AFFECTED AREA(S) BY TOPICAL ROUTE 2 TIMES PER DAY IN THE MORNING AND EVENING 03/16 completed Not Available Not Available Not Available codeine 10 mg-guaifene sin 100 mg/5 mL oral liquid Take 10 mL every 4 hours by oral route as needed. 03/16 completed Not Available Not Available Not Available albuterol sulfate HFA 90 mcg/actuati on aerosol inhaler INHALE 2 PUFFS INTO THE LUNGS EVERY 4 HOURS FOR 30 DAYS 06/24 completed Not Available Not Available Not Available sertraline 50 mg tablet TAKE 1 TABLET BY MOUTH EVERY DAY FOR 30 DAYS 09/11 completed Not Available Not Available Not Available olmesartan 20 mg tablet TAKE 1 TABLET BY MOUTH EVERY DAY FOR 30 DAYS 2024 active Not Available Not Available Not Avai lable Saline Nasal 0.65 % spray aerosol Take 2 sprays 4 times a day by nasal route. 09/18 completed Not Available Not Available Not Available metronidazo le 1 % topical gel APPLY TO THE AFFECTED AREA(S) BY TOPICAL ROUTE ONCE DAILY ; RUB IN GENTLY AND COMPLETEL Y 10/03 completed Not Available Not Available Not Available hydrochloro thiazide 12.5 mg tablet TAKE 1 TABLET BY MOUTH EVERY DAY active Not Available Not Available No t Available cholecalcif james (vitamin D3) 1,250 mcg (50,000 unit) capsule TAKE 1 CAPSULE BY MOUTH EVERY WEEK FOR 56 DAYS 03/11 completed Not Available Not Available Not Available GaviLyte-G 236 gram-22.74 gram-6.74 gram-5.86 gram oral solution TAKE 8 OUNCE BY MOUTH DIRECTED FOLLOW PREP INSTRUCTI ONS GIVEN BY YOUR DOCTOR'S OFFICE 06/24 completed Not Available Not Available Not Available Fluarix Quad [id number] (PF) 60 mcg (15 mcg x 4)/0.5 mL IM syringe 09/28 completed Not Available Not Available Not Available Shingrix (PF) 50 mcg/0.5 mL intramuscul ar suspension, kit PHARMACY ADMINISTE RED 04/07 completed Not Available Not Available Not Available Flucelvax Quad (PF) 60 mcg (15 mcg x 4)/0.5 mL IM syringe 11/25 completed Not Available Not Available Not Available Fluzone Quad (PF) 60 mcg (15 mcg x 4)/0.5 mL IM syringe 05/21 completed Not Available Not Available Not Available Fluzone Quad (PF) 60 mcg (15 mcg x 4)/0.5 mL IM syringe PHARMACY ADMINISTE RED 06/23 completed Not Available Not Available Not Available Paxlovid 300 mg (150 mg x 2)-100 mg tablets in a dose pack TAKE 3 TABLETS BY MOUTH TWICE A DAY DIRECTED FOR 5 DAYS 09/18 completed Not Available Not Available Not Available Vitals Date Recorded Body height Body mass index (BMI) Body weight Heart rate Oxygen saturation Oxygen saturation in Arterial blood by Pulse oximetry Body temperature Systolic And Diastolic Provider Name and Address Organization Details Last Updated DateTime 4 169.55 cm 35.5 kg/m2 765560. 28 g 84 /min 98 % 98 % 98 [degF] 130/83 mm[Hg] Letty archibald MA [facility] 4 13:10:19 Date Recorded Body height Body mass index (BMI) Body weight Oxygen saturation Oxygen saturation in Arterial blood by Pulse oximetry Heart rate Body temperature Systolic And Diastolic Provider Name and Address Organization Details Last Updated DateTime 5 169.55 cm 35.5 kg/m2 576068. 28 g 97 % 97 % 88 /min 97.9 [degF] 137/82 mm[Hg] Reena Del Cid MA [facility] 5 08:53:35 Date Recorded Systolic And Diastolic Provider Name and Address Organization Details Last Updated DateTime 03/11/2025 150/94 mm[Hg] Jaun Calderon PA-C [address] [address], [place], [address], [facility] 03/11/2025 09:42:03 Date Recorded Body height Body mass index (BMI) Body weight Body temperature Heart rate Systolic And Diastolic Systolic And Diastolic Provider Name and Address Organization Details Last Updated DateTime 5 169.55 cm 33.1 kg/m2 45210.4 g 98.6 [degF] 64 /min 168/112 mm[Hg] 170/114 mm[Hg] Maeve [facility] 5 09:15:17 Date Recorded Body height Body mass index (BMI) Body weight Heart rate Oxygen saturation Oxygen saturation in Arterial blood by Pulse oximetry Body temperature Systolic And Diastolic Provider Name and Address Organization Details Last Updated DateTime 5 169.55 cm 32.8 kg/m2 15775.2 1 g 68 /min 97 % 97 % 98 [degF] 127/75 mm[Hg] Klarissa Gaytan MA [facility] 5 13:53:23 Date Recorded Body height Provider Name an d Address Organization Details Last Updated DateTime 06/24/2024 169.55 cm Reena Del Cid MA [facility] 06/24/2024 13:53:34 Social History Question Answer Notes LastModified by Organizat ion Details LastModified Time Tobacco Smoking Status Former Smoker quit 1999 [place], [facility] 11/25/2018 15:23:22 Do You Have An Advance Directive? No Information not available 07/23/2023 Is Blood Transfusion Acceptable In An Emergency? Yes Information not available 09/28/2016 What Is Your Level Of Caffeine Consumption? Moderate 2+ Cups Of Coffee Daily Information not available 05/21/2019 How Much Tobacco Do You Chew? None Information not available 09/28/2016 What Type Of Diet Are You Following? REGULAR Information not available 09/28/2016 Which Illicit Or Recreational Drugs Have You Used? None Information not available 11/25/2018 When Did You Quit Smoking? 16+yearssinc elastcigaret te [email or web address] Information not available 04/07/2021 Live Alone Or With Others? With Others (Lian) Information not available 07/23/2023 Do You Take Precautions To Prevent Distracted Driving? Yes Information not available 09/28/2016 How Often Do You Need To Have Someone Help You When You Read Instructions, Pamphlets, Or Other Written Material From Your Doctor Or Pharmacy? Never Information not available 09/28/2016 Have You Served In The ? Yes [email or web address] Information not available 10/03/2017 Have You Or Anyone In Your Household Had Any Of The Following Symptoms In The Last 14 Days: Sore Throat, Cough, Chills, Body Aches For Unknown Reasons, Shortness Of Breath For Unknown Reasons, Loss Of Smell, Loss Of Taste, Fever At Or Greater Than 100 Degrees Fahrenheit? No [email or web address] Information not available 03/17/2020 Are You Or Anyone In Your Household A Health Care Provider Or Emergency Responder? No Information not available 03/17/2020 To The Best Of Your Knowledge Have You Been In Close Proximity To Any Individual Who Tested Positive For COVID-19? Yes [email or web address] Information not available 05/16/2022 Have You Recently Traveled To A COVID-19 High Risk Area Or Gathering In The Last 10 Days? No [email or web address] Information not available 04/07/2021 What Was The Date Of Your Most Recent Tobacco Screening? 09/11/2024 [email or web address] Information not available 09/11/2024 How Many Children Do You Have? 3 Rekha Hauser John Jack Information not available 07/23/2023 What Is Your Current Pack Years? 20-29packyea [email or web address] Information not available 07/23/2023 Do You Use Protection During Sex? No Information not available 09/28/2016 Do You Use Your Seat Belt Or Car Seat Routinely? Yes Information not available 10/05/2021 Seat Belts Used Routinely Yes Information not available 07/23/2023 Are You Sexually Active? Yes Lian Information not available 07/23/2023 Smoke Alarm In Home Yes Information not available 07/23/2023 Do You Have Smoke And Carbon Monoxide Detectors In Your Home? Yes Information not available 10/05/2021 At What Age Did You Start Smoking Tobacco? 20 Information not available 11/25/2018 Are You Passively Exposed To Smoke? No Information not available 09/28/2016 How Much Tobacco Do You Smoke? No Information not available 07/23/2023 Do You Use Sunscreen Routinely? No Information not available 09/28/2016 How Many Years Have You Smoked Tobacco? 20 Information not available 11/25/2018 Sex: Unknown Functional Status Question Answer Note LastModified by Organizat ion Details LastModified Time Do you use any illicit or recreational drugs? No Information not available 07/23/2023 Do you or have you ever used any other forms of tobacco or nicotine? No Information not available 07/23/2023 What is your level of alcohol consumption? None Information not available 07/23/2023 Do you or have you ever used smokeless tobacco? Never used smokeless tobacco Information not available 05/21/2019 Are you currently employed? Yes Information not available 09/28/2016 Are you able to walk independently without assistance or assistive devices? YESWOREST Information not available 07/23/2023 Are you able to care for yourself independently? Yes Information not available 09/28/2016 What is your occupation? [employer] [facility] Information not available 05/16/2022 Do you or have you ever used e-cigarettes or vape? Never used electronic cigarettes Information not available 07/23/2023 What is your exercise level? Moderate hockey, golf, treadmill Information not available 07/23/2023 Mental Status None recorded. Family History Relationship Description Onset Age of this Age Resolved Age Notes LastModified by Organization Details LastModified Time Paternal Grandfather Malignant neoplastic disease brain [email or web address] Not available 09/18 09:26:19 Father No current problems or disability [email or web address] Not available 12/2022 09:26:19 Father Harmful pattern of use of alcohol [email or web address] Not available 03/17 13:01:33 Mother No current problems or disability [email or web address] Not available 12/2022 09:26:19 Paternal Grandmother Dementia Not available 13:01:33 Notes:no fh P Ca or CRC Medical History Condition Response Gout N Other Y Kidney Stones N Blood Diseases N Hyperthyroidism N Breast Cancer N Hypothyroidism N Lung Disease N Depression N COPD N Defects or Inherited Disease N Anesthesia Complications N Headaches/Migraines N Anxiety Disorder Y Varicose Veins N Obesity N Vision or Eye Problems N Arthritis N Head Injury/Concussion N Infertility N Polyps Y Congenital Anomalies N Acid Reflux (GERD) Y Cancer N Stroke N ADHD Y Endometriosis N High Cholesterol Y Liver Disease N Fibromyalgia N Kidney Disease N Heart Problems N Ear or Hearing Problems N Hospitalizations N Thyroid Problems N GI Problems N Acne N Eating Disorder N Skin Problems Y Anemia N Constipation N Bladder Problems N Mental Illness N Diabetes N Ovarian Cancer N Blood Transfusions N Seizures/Epilepsy N Tuberculosis N AIDS/HIV N Congestive Heart Failure (CHF) N Eczema N Abuse/Domestic Violence N Diverticulitis N Asthma N Allergies N Reflux/GERD Y Hepatitis N Pulmonary Embolism N Hypertension N Chicken Pox Y Autism Spectrum Disorder (ASD) N Osteoporosis N Immunizations Vaccine Type Date Status Note Provider Name and Address Organization Details Recorded Time Influenza, MDCK, quadrivalent, PF 06/05/20 18 completed Roseann wright [facility] 04/19/2023 14:03:25 Influenza, split virus, quadrivalent, PF 04/26/20 20 completed Roseann wright [facility] 04/19/2023 14:03:25 zoster recombinant 06/26/20 20 completed Roseann wright [facility] 04/19/2023 14:03:25 zoster recombinant 09/07/19 21 completed Roseann wright [facility] 04/19/2023 14:03:25 COVID-19, mRNA, LNP-S, PF, 100 mcg/0.5mL dose or 50 mcg/0.25mL dose 09/29/19 21 completed Roseann wright [facility] 04/19/2023 14:03:25 COVID-19, mRNA, LNP-S, PF, 100 mcg/0.5mL dose or 50 mcg/0.25mL dose 10/30/19 21 completed Roseann Oates null, [facility] 04/19/2023 14:03:25 Influenza, split virus, quadrivalent, PF 05/13/20 21 completed Roseann Oates null, [facility] 04/19/2023 14:03:25 COVID-19, mRNA, LNP-S, PF, 100 mcg/0.5mL dose or 50 mcg/0.25mL dose 05/13/20 21 completed Roseann Oates null, [facility] 04/19/2023 14:03:25 COVID-19, mRNA, LNP-S, PF, 100 mcg/0.5mL dose or 50 mcg/0.25mL dose 11/26/19 22 completed Roseann Oates null, [facility] 04/19/2023 14:03:25 Influenza, split virus, quadrivalent, PF 08/16/19 17 completed Roseann Oates null, [facility] 04/19/2023 14:03:25 Influenza, split virus, quadrivalent, PF 05/20/20 19 completed Roseann Oates null, [facility] 04/19/2023 14:03:25 Td(adult) unspecified formulation 07/30/19 02 completed Roseann Oates null, [facility] 04/19/2023 14:03:25 COVID-19, mRNA, LNP-S, PF, 100 mcg/0.5mL dose or 50 mcg/0.25mL dose 10/30/19 21 completed Letty Benavidez-Miles os, [place] null, [facility] 07/23/2023 13:10:35 COVID-19, mRNA, LNP-S, PF, 100 mcg/0.5mL dose or 50 mcg/0.25mL dose 10/30/19 21 completed Letty Benavidez-Miles os, [place] null, [facility] 07/23/2023 13:10:35 Influenza, split virus, quadrivalent, PF 04/12/20 22 completed Roseann Oates null, [facility] 04/19/2023 14:03:25 Tdap 11/01/19 22 completed Roseann Oates null, [facility] 04/19/2023 14:03:25 COVID-19, mRNA, LNP-S, PF, linsey-sucrose, 30 mcg/0.3 mL 04/17/20 23 completed Letty [email or web address] MA null, [facility] 07/23/2023 13:10:35 Influenza, split virus, quadrivalent, PF 04/17/20 23 completed Roseann Oates null, [facility] 04/19/2023 14:03:25 COVID-19, mRNA, LNP-S, PF, 50 mcg/0.5 mL 04/14/20 24 completed LENA Schwab, [facility] 09/11/2024 08:46:41 Influenza, split virus, trivalent, PF 04/14/20 24 completed LENA Schwab, [facility] 09/11/2024 08:46:41 Tdap 11/26/19 19 cancelled patient objection Not Available [facility] 08/02/2019 02:21:49 Td (adult), 2 Lf tetanus toxoid, preservative free, adsorbed 03/17/20 20 cancelled patient objection Jaun Calderon PA-C [address] [facility] [address] [facility], [place], [address], [facility] 03/17/2020 13:54:05 zoster recombinant 03/17/20 20 cancelled patient objection Jaun Calderon PA-C [address] [facility], [place], [address], [facility] 03/17/2020 13:54:05 Influenza, split virus, trivalent, PF 04/08/20 25 completed LENA Boyle, [facility] 04/08/2025 14:10:46 Past Encounters Encounter ID Performer Location Encounter Start Date Encounter Closed Date Diagnosis/Indication Diagnosis SNOMED-CT Code Diagnosis ICD10 Code Diagnosis IMO Codes Diagnosis Note [id number] Jaun Calderon PA-C Main Office [address] [facility] [address] [place] [address] 09/28/2016 15:08:21 09/28/2016 16:55:52 Adult health examination 519269864 Z00.00 will attempt to get colon report - will ask medical records to try to track down Congenital myotonia, 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 cont to f/u c neuro, cont med as dir Obstructiv e sleep apnea syndrome 00147938 G47.33 has been off cpap x yrs, could not tolerate it, last seen by sleep specialist long time ago July 834786358 L71.9 cont f/u c derm Anxiety 58494402 F41.9 Body mass index 30+ - obesity 595329277 Z68.31 Cough 54615534 R05 prob d/t pnd [id number] Jaun Calderon PA-C Main Office [address] [facility] [address] [place] [address] 10/24/2016 15:18:00 10/24/2016 16:51:01 Hyperglycemia 05281517 R73.9 offered re-assuran ce - no evidence of DM Hyperlipidemia 89883916 E78.5 ascvd risk of 3.9% - no need for statin treatment Obstructiv e sleep apnea syndrome 11419778 G47.33 pending see sleep specialist in 5.17 Nasal congestion 7512267 0 R09.81 could try breathe right nasal strip and / or shallow wide bowl of water on nightstand July 896566083 L71.9 no like Prediabetes 004497019 R7 3.03 Serum crea tinine above reference range 138331085 R79.89 Liver func tion tests outside reference range 740202716 R94.5 admits to occ etoh, but ast is not double alt - prob d/t mild fatty liver - rec wt loss and will recheck before further w/u Body mass index 30+ - obesity 539310693 E66.9 Z68.32 [id number] Jaun Calderon PA-C Main Office [address] [facility] [address] [place] [address] 04/04/2017 09:58:59 04/04/2017 11:01:40 Obstructive sleep apnea syndrome 91968307 G47.33 seen by sleep specialist , prn use of cpap Congenital myotonia, autosomal recessive form 08134927 G71.12 cont to f/u c neuro, cont med as dir Elevated blood-pressure reading without diagnosis of hypertension 770076031 R03.0 encouraged pt to track bp - bp diary - could check at [facility] Body mass index 30+ - obesity 330495832 E66.9 Z68.32 pt will start running and playing hockey again Mixed anxi ety and depressive disorder 672986728 F41.8 will send pt for eval reece OREILLYN, is reading keith s book - sports psychologi st Alcohol dependence 61146 003 F10.20 [id number] Jaun Calderon PA-C Main Office [address] [facility] [address] [place] [address] 10/03/2017 08:52:02 10/03/2017 10:27:37 Adult health examination 074716644 Z00.00 will attempt to get colon report - will ask medical records to try to track down Obstructiv e sleep apnea syndrome 85178942 G47.33 seen by sleep specialist , prn use of cpap- none recently Congenital myotonia, autosomal recessive form 06239174 G71.12 cont to f/u c neuro, cont med as dir Body mass index 30+ - obesity 516833439 E66.9 Z68.32 pt will start running and playing hockey again Mixed anxi ety and depressive disorder 609292160 F41.8 will send pt for re-jignesh FLORES - is familiar c keith s and give trial of celexa - pt expressed desire to begin med - rec 1/2 tab x 1st wk then increase to full tab Alcohol dependence 40040 003 F10.20 rec f/u BHN - trying to get him to substance abuse counsellor Skin lesion 60166859 L98 .9 Essential hypertension 40122631 I10 Pure hypercholesterolemia 988484760 E78.00 [id number] Emiliano Grove MD Main Office [address] [facility] [address] [facility] [place] [address] 11/25/2018 15:07:55 11/25/2018 16:15:45 Adult health examination 083643922 Z00.00 will attempt to get colon report - will ask medical records to try to track down Administra tion of viral vaccine 59657547 Z23 Obstructiv e sleep apnea syndrome 61466827 G47.33 seen by sleep specialist , prn use of cpap- none recently - rec resume Congenital myotonia, autosomal recessive form 41731123 G71.12 cont to f/u c neuro, cont med as dir Body mass index 30+ - obesity 936698452 E66.9 Z68.33 pt will start running and playing hockey again Mixed anxi ety and depressive disorder 156003284 F41.8 will send pt for re-eval c BHN - is familiar c mindfulnes s no tolerate ssri Alcohol dependence 85959 003 F10.20 rec back off beer intake Skin lesion 57115608 L98 .9 benign, cont f/u c derm Essential hypertension 81604730 I10 stable, cont med as dir Impaired f asting glycemia 475467332 R73.01 Hyperlipidemia 75115337 E78.5 ascvd risk of 3.9% - no need for statin treatment - recheck lipids Nasal congestion 0455687 0 R09.81 could try breathe right nasal strip and / or shallow wide bowl of water on nightstand no sig help c flonase - will get ent eval - if needs surgery for nasal polyps, will likely help c nasal pillows for santosh treatment History of polyp of colon 158171966 Z86.010 rec pt call gi [id number] Emiliano Grove MD Main Office [address] [place] [address] 05/21/2019 15:41:05 05/21/2019 16:40:33 Skin lesion 02116101 L98.9 on center of chest - will get derm eval Essential hypertension 62743642 I10 stable, cont med as dir Hyperlipidemia 15161667 E78.5 ascvd risk of 3.9% - no need for statin treatment - recheck lipids at next pe [facility] hypothyroidism 86493717 E02 Nasal congestion 9621102 0 R09.81 seen by ent - no note to review - will attempt to get could try breathe right nasal strip and / or shallow wide bowl of water on nightstand Obstructiv e sleep apnea syndrome 52548937 G47.33 seen by sleep specialist , prn use of cpap- none recently - rec resume Insomnia 191284183 G47.0 0 rec trial of melatonin at dinnertime [id number] Emiliano Grove MD Main Office [address] [place] [address] 08/14/2019 14:42:00 08/14/2019 15:36:41 Acute upper respiratory infection 52463909 J06.9 Supportive /symptomat ic tx advised. Pt requesting meds for cough in light of upcoming work obligation s. Call inb/worse or if second sickening occurs. Cough 44251644 R05 [id number] Emiliano Grove MD Main Office [address] [facility] [address] [place] [address] 03/17/2020 12:54:04 03/17/2020 14:06:08 Adult health examination 424409395 Z00.00 Skin lesion 41454616 L98 .9 on center of chest - rec call ne derm for re-eval Essential hypertension 28574295 I10 stable, cont med as dir Hyperlipidemia 96851878 E78.5 ascvd risk of 3.9% - no need for statin treatment - recheck lipids at next pe [facility]clin[facility] hypothyroidism 97280667 E02 Nasal congestion 8483778 0 R09.81 seen by ent - f/u prn Obstructiv e sleep apnea syndrome 52903107 G47.33 seen by sleep specialist , prn use of cpap- none recently - rec resume Insomnia 272106430 G47.0 0 rec trial of melatonin at dinnertime = consider trazodone if no sig improvemen t Impaired f asting glycemia 489728111 R73.01 Major depr essive disorder 869572934 F32.1 pt declines ssri, will get bhn re-eval Anxiety 05778967 F41.9 see above and below Body mass index 30+ - obesity 359357842 E66.9 Z68.33 pt will start running and playing hockey again Requires a tetanus booster 772639150 Z23 Varicella vaccination 68 094483 Z23 Alcohol dependence 54450 003 F10.20 Counseling 290229628 Z71 .9 Referral for counseling with Zoie / CHANDAN Rivera. Please provide patient with contact info to schedule their appointmen t. #[phone] email: [email or web address] [id number] Emiliano Grove MD Main Office [address] [facility] [address] [place] [address] 06/23/2020 09:55:23 06/23/2020 11:10:03 Essential hypertension 87967045 I10 stable, cont med as dir Insomnia 418260309 G47.0 0 better c traz - cont as dir - see below Major depr essive disorder 140301370 F32.0 sig better c traz, cont BHN as dir Anxiety 44700015 F41.9 see above [id number] Emiliano Grove MD Main Office [address] [facility] [address] [place] [address] 04/07/2021 12:52:08 04/07/2021 13:52:48 Adult health examination 454051303 Z00.00 Essential hypertension 39691382 I10 stable, cont med as dir Hyperlipidemia 98968234 E78.5 Major depr essive disorder 383109476 F32.0 better lately, used to take traz / used to see n [facility] hypothyroidism 66154515 E02 Nasal congestion 2909571 0 R09.81 seen by ent - f/u prn Obstructiv e sleep apnea syndrome 91145733 G47.33 seen by sleep specialist , prn use of cpap- none recently - rec resume, but he hasn't seen them in a long time - will get updated referral Congenital myotonia, autosomal recessive form 05150176 G71.12 cont to f/u c neuro, cont prn med as dir Impaired f asting glycemia 859630402 R73.01 Body mass index 30+ - obesity 005293155 E66.9 Z68.34 pt will start running and playing hockey again Skin lesion 54408208 L98 .9 on center of chest - rec get ne derm re-eval [id number] Emiliano Grove MD Main Office [address] [facility] [address] [place] [address] 10/05/2021 08:41:12 10/05/2021 09:25:39 Essential hypertension 80230556 I10 stable, cont med as dir Subclinica l hypothyroidism 12212018 E02 Hyperlipidemia 28677404 E78.5 [place] - your LDL (bad chol) has decreased a little but is still quite high, and when I plugged your #'s into a risk calculator - your ascvd risk is 10.7%, and national guidelines recommend a statin when your risk is > 7.5%. Please let us know if you decide you'd like to begin a statin (generic lipitor) to reduce your ascvd risk. Also rec low carb diet to lower your trigs.pt declines statin Obstructiv e sleep apnea syndrome 39290027 G47.33 seen by sleep specialist - pending get dme Prediabetes 882874870 R7 3.03 Villa - dragan warner you have evidence of pre-diabet es - rec. less sugar intake (candy, ice cream, soda/juice , etc), follow a low carb diet and get plenty of aerobic exercise to help you to lose weight. Skin lesion 22674760 L98 .9 cont f/u c derm [id number] Nas Jensen MD Main Office [address] [address] 10/31/2021 15:08:55 10/31/2021 16:27:33 Administration of viral vaccine 28583052 Z23 [id number] Emiliano Grove MD Main Office [address] [address] 04/12/2022 09:15:04 04/12/2022 10:41:45 Adult health examination 562497239 Z00.00 Needs infl uenza immunization 398857648 Z23 Hyperlipidemia 37958929 E78.5 [place] - your LDL (bad chol) has decreased a little but is still quite high, and when I plugged your #'s into a risk calculator - your ascvd risk is 10.7%, and national guidelines recommend a statin when your risk is > 7.5%. Please let us know if you decide you'd like to begin a statin (generic lipitor) to reduce your ascvd risk. Also rec low carb diet to lower your trigs.pt declines statin Subclinica l hypothyroidism 66233901 E02 Obstructiv e sleep apnea syndrome 79047858 G47.33 stable, cont cpap Congenital myotonia, autosomal recessive form 39567414 G71.12 cont to f/u c neuro, cont prn med as dir --- neuro retired (Dr. Carter ) - so will need to get new neuro Impaired f asting glycemia 792715171 R73.01 Body mass index 30+ - obesity 542640212 E66.9 Z68.35 pt will start running and playing hockey again Skin lesion 98366035 L98 .9 on center of chest - excised, fol by derm Mild memor y disturbance 952695826 R41.3 ? d/t stress - but scored well on rosa/phq - cannot access 6cit - will check labs above ? has early alcohol related dementia - rec decrease / stop etoh - check metabolic w/u and get neuropsych eval Alcohol dependence 91193 003 F10.20 see above Chronic ki dney disease stage 3 806140315 N18.31 Hypertensi ve renal disease 26219865 I12.9 bp stable, cont meds as dir [id number] Qasim Bui MD Telehealt h [address] [facility] [address] [place] [address] 07/24/2022 14:39:41 07/24/2022 15:37:57 COVID-19 625994070 U07.1 [id number] Emiliano Grove MD Main Office [address] [address] 09/18/2022 09:24:37 09/18/2022 10:40:30 Mild memory disturbance 143047417 R41.3 ? d/t stress - but scored well on rosa/phq - cannot access 6cit - will check labs above ? has early alcohol related dementia - rec decrease / stop etoh - check metabolic w/u and get neuropsych eval . - scored well on 6cit - and reviewed labs from 05.06 - offered reassuranc e no evidence of dementia ---pt plans on retiring 03.07 - should sig lower his stress level, going to son's wedding in 02.04 Impaired f asting glycemia 957393783 R73.01 but no predm Hypertensi ve renal disease 98975233 I12.9 bp & cr stable, cont meds as dir Cough 79544671 R05.9 ? has p covid pna - see below cont mucinex Chronic ki dney disease stage 2 241485933 N18.2 cr stable Pneumonia 671031374 J18. 9 recommend probiotics while on abx Dyspnea 810213196 R06.00 Hyperlipidemia 19256565 E78.5 Villa - your LDL (bad chol) has decreased a little but is still quite high, and when I plugged your #'s into a risk calculator - your ascvd risk is 10.7%, and national guidelines recommend a statin when your risk is > 7.5%. Please let us know if you decide you'd like to begin a statin (generic lipitor) to reduce your ascvd risk. Also rec low carb diet to lower your trigs.pt declines statin [id number] Emiliano Grove MD Main Office [address] [facility] [address] [facility] [place] [address] 07/23/2023 12:58:44 07/23/2023 14:07:05 Adult health examination 755597913 Z00.00 Mild memor y disturbance 970664101 R41.3 ? d/t stress - but scored well on rosa/phq - cannot access 6cit - will check labs above ? has early alcohol related dementia - rec decrease / stop etoh - check metabolic w/u and get neuropsych eval 3. - scored well on 6cit - and reviewed labs from 05.06 - offered reassuranc e no evidence of dementia ---pt plans on retiring 03.07 - should sig lower his stress level, going to son's wedding in 02.04 1.24 - better lately, seen by neuro Impaired f asting glycemia 547333014 R73.01 but no predm Hypertensi ve renal disease 31942338 I12.9 bp & cr stable, cont meds as dir Chronic ki dney disease stage 2 326918387 N18.2 cr stable Hyperlipidemia 21477499 E78.5 [place] - your LDL (bad chol) has decreased a little but is still quite high, and when I plugged your #'s into a risk calculator - your ascvd risk is 10.7%, and national guidelines recommend a statin when your risk is > 7.5%. Please let us know if you decide you'd like to begin a statin (generic lipitor) to reduce your ascvd risk. Also rec low carb diet to lower your trigs.pt declines statin Congenital myotonia, autosomal recessive form 78830344 G71.12 cont to f/u c neuro, cont prn med as dir --- neuro retired (Dr. Carter ) - so will need to get new neuro 1.24 - stable, cont f/u c neuro, had negative dementia w/u c neuro Major depr essive disorder 828530464 F32.0 better lately, used to take traz / used to see bhn Obstructiv e sleep apnea syndrome 79524323 G47.33 stable, cont cpap Subclinica l hypothyroidism 65019203 E02 Body mass index 30+ - obesity 758935647 E66.01 Z68.35 pt will start running and playing hockey again History of polyp of colon 044825703 Z86.010 rec pt call gi - next colon 7.24 Anxiety 50673905 F41.9 mild on rosa - see above Hemorrhoids 32454484 K64 .9 occ bother him - but uses prn wipes - helpful Skin lesion 46183722 L98 .9 on center of chest - excised, fol by derm1.24 - cont f/u c ne derm Reduced libido 1844675 R 68.82 Primary er ectile dysfunction 638754665 N52.9 [id number] Emiliano Grove MD Tele[facility] [address] [place] [address] 06/24/2024 13:39:02 06/24/2024 15:04:30 Major depressive disorder 723902322 F32.1 better lately, used to take traz / used to see bhn 12.24 - moderate on phq? tried cit back in 2018, so will try sertraline - start c 1/2 tab qd first wk, advance to full tab qdsee below Anxiety 62169313 F41.9 mild on rosa - see above 12.24 - moderate on rosa - see above/belo w - rec get therapistp t interested in therapy initially first, then ultimately to get couples therapy Harmful pa ttern of use of alcohol 43177129 F10.10 ? complicati ng above/belo w - pt denies etoh as the culprit, but more so as situationa l - drinks as a consequenc e of his various stressors --- see above - if worse, then consider [facility] Opposition al defiant disorder 99246293 F91.3 ? this as per his family's report - see abovept interested in therapy initially first, then ultimately to get couples therapy Hyperlipidemia 07491090 E78.5 [place] - your LDL (bad chol) has decreased a little but is still quite high, and when I plugged your #'s into a risk calculator - your ascvd risk is 10.7%, and national guidelines recommend a statin when your risk is > 7.5%. Please let us know if you decide you'd like to begin a statin (generic lipitor) to reduce your ascvd risk. Also rec low carb diet to lower your trigs.pt declines statin 12.24 - recheck fasting labs ac upcoming PE Vitamin D deficiency 347 98669 E55.9 Impaired f asting glycemia 980609231 R73.01 but no predm Subclinica l hypothyroidism 93902668 E02 [id number] Emiliano Grove MD Main Office [address] [facility] [address] [place] [address] 09/11/2024 08:44:04 09/11/2024 10:17:07 Adult health examination 557691611 Z00.00 colon utd Chronic ki dney disease stage 2 110999500 N18.2 cr stable Hyperlipidemia 02631591 E78.5 [place] - your LDL (bad chol) has decreased a little but is still quite high, and when I plugged your #'s into a risk calculator - your ascvd risk is 10.7%, and national guidelines recommend a statin when your risk is > 7.5%. Please let us know if you decide you'd like to begin a statin (generic lipitor) to reduce your ascvd risk. Also rec low carb diet to lower your trigs.pt declines statin 12.24 - recheck fasting labs ac upcoming PE 2.25 - does not wish to start statin at this time, plans to implement lifestyle changes - good diet, exercise. increased etoh increase, limited exercise, changes in diet. work is stressful, formerly retired but still spending lots of time working. states drinking too much but is going to cut down. cut down higher ABV.amarilis t ascvd risk 14.3% Insomnia 412874017 G47.0 0 consider trial of melatonina lso consider stopping etoh ac hsif no help, then consider gbn hs Major depr essive disorder [id number] F32.1 better lately, used to take traz / used to see bhn 12.24 - moderate on phq? tried cit back in 2018, so will try sertraline - start c 1/2 tab qd first wk, advance to full tab qdsee below 2.25 - no tolerate sertraline - wishes not to try new med at this timesee anx below re: therapist Obstructiv e sleep apnea syndrome [id number] G47.33 stable, cont cpap Prediabetes 438743242 R7 3.03 [place] - unfortunat timmy you have evidence of pre-diabet es - rec. less sugar intake (candy, ice cream, soda/juice , etc), follow a low carb diet and get plenty of aerobic exercise to help you to lose weight. Anxiety 88283083 F41.9 mild on rosa - see above 12.24 - moderate on rosa - see above/belo w - rec get therapistp t interested in therapy initially first, then ultimately to get couples therapy 2.25 - see above Harmful pa ttern of use of alcohol 80138997 F10.10 ? complicati ng above - pt denies etoh as the culprit, but more so as situationa l - drinks as a consequenc e of his various stressors --- see above - if worse, then consider [facility] Vitamin D deficiency [id number] 47396 E55.9 Body mass index 30+ - obesity 958349164 E66.01 Z68.35 pt will start running and playing hockey again [id number] Emiliano Grove MD Main Office [address] [facility] [address] [facility] [place] [address] 03/11/2025 08:45:03 03/11/2025 09:52:50 Anxiety 49722514 F41.9 mild on rosa - see above 12.24 - moderate on rosa - see above/belo w - rec get therapistp t interested in therapy initially first, then ultimately to get couples therapy 2.25 - see above 8.25 - cont see therapist q few wks, seen by med prescriber at [facility] - recently rec med, but pt deferred - advised pt to consider it (? lexapro) Chronic ki dney disease stage 2 [id number] N18.2 cr stable Hypertensi ve renal disease 36364058 I12.9 bp & cr stable, cont meds as dir 8.25 - bp elevated - cont hctz as dir, but addrec check labs Prediabetes 125970514 R7 3.03 [place] - unfortunat timmy you have evidence of pre-diabet es - rec. less sugar intake (candy, ice cream, soda/juice , etc), follow a low carb diet and get plenty of aerobic exercise to help you to lose weight. 8.25 - lost 15 lbs recentlyen couraged pt to check outstandin g labs as directed Opposition al defiant disorder 19342894 F91.3 ? this as per his family's report - see abovept interested in therapy initially first, then ultimately to get couples therapy 8.25 - see above Major depr essive disorder [id number] F32.1 better lately, used to take traz / used to see bhn 12.24 - moderate on phq? tried cit back in 2018, so will try sertraline - start c 1/2 tab qd first wk, advance to full tab qdsee below 2.25 - no tolerate sertraline - wishes not to try new med at this timesee anx below re: therapist 8.25 - phq zero today - see above Vitamin D deficiency [id number] 18831 E55.9 61433 encouraged pt to check outstandin g labs as directed Hyperlipidemia 83901741 E78.5 [place] - your LDL (bad chol) has decreased a little but is still quite high, and when I plugged your #'s into a risk calculator - your ascvd risk is 10.7%, and national guidelines recommend a statin when your risk is > 7.5%. Please let us know if you decide you'd like to begin a statin (generic lipitor) to reduce your ascvd risk. Also rec low carb diet to lower your trigs.pt declines statin 12.24 - recheck fasting labs ac upcoming PE 2.25 - does not wish to start statin at this time, plans to implement lifestyle changes - good diet, exercise. increased etoh increase, limited exercise, changes in diet. work is stressful, formerly retired but still spending lots of time working. states drinking too much but is going to cut down. 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 Carter ) - so will need to get new neuro 1.24 - stable, cont f/u c neuro, had negative dementia w/u c neuro 8.25 - encouraged pt to see neuro [id number] Emiliano Grove MD Main Office [address] [facility] [address] [facility] [place] [address] 04/08/2025 13:48:42 04/08/2025 15:03:23 Hyperlipidemia 41207814 E78.5 [place] - your LDL (bad chol) has decreased a little but is still quite high, and when I plugged your #'s into a risk calculator - your ascvd risk is 10.7%, and national guidelines recommend a statin when your risk is > 7.5%. Please let us know if you decide you'd like to begin a statin (generic lipitor) to reduce your ascvd risk. Also rec low carb diet to lower your trigs.pt declines statin 12.24 - recheck fasting labs ac upcoming PE 2.25 - does not wish to start statin at this time, plans to implement lifestyle changes - good diet, exercise. increased etoh increase, limited exercise, changes in diet. work is stressful, formerly retired but still spending lots of time working. states drinking too much but is going to cut down. cut down higher ABV.curren t ascvd risk 14.3% 9.25 - [place] - your LDL (bad chol) came down a little, but when I plugged your #'s into a risk calculator - your ascvd risk is 16.0%, and national guidelines recommend a statin when your risk is > 7.5%. Please let us know if you decide you'd like to begin a statin (generic lipitor or crestor) to reduce your ascvd risk.pt again declines statin Hypertensi ve renal disease 79720248 I12.9 bp & cr stable, cont meds as dir 8.25 - bp elevated - cont hctz as dir, but addrec check labs 9.25 - bp & cr stable, cont meds as dir Prediabetes 739115125 R7 3.03 [place] - unfortunat timmy you have evidence of pre-diabet es - rec. less sugar intake (candy, ice cream, soda/juice , etc), follow a low carb diet and get plenty of aerobic exercise to help you to lose weight. 8.25 - lost 15 lbs recentlyen couraged pt to check outstandin g labs as directed 9.25 - a1c stable at 5.7 - has lost another 5 lbs Needs infl uenza immunization [id number] Z23 19 YEARS AND OLDER ONLY Hyperkalemia 39208538 E8 7.5 9805 [place] - the majority of your labs here are fine, except your potassium is a little high - rec. low potassium diet (less gatorade, OJ, bananas, cantaloupe , tomatoes, spinach, etc) and get this rechecked nonfasting in 1-2 weeks.- Pat9.25 - likely d/t tomatoes, rec recheck Health Concerns Section Related Observation LastModified by Organization Detai ls LastModified Time None Recorded Concern Status LastModified by Organization Details LastModified Time None Recorded Advance Directives Directive N: Payers Insurance Date Sequence Insurance Name Policy Number Policy Kevin Covered Member ID Kevin Member ID Guarantor Name 03/22/2021 1 [facility]: NETWORK BLUE - [facility] [place] [id number] Lian Arriola [id number] Nathan Arriola 05/02/2025 1 [facility] INDEMNITY PLAN (PPO) [id number] Lian Arriola [id number] Nathan Arriola 04/05/2021 1 [facility] INDEMNITY PLAN (INDEMNITY) [id number] Nathan Arriola [id number] Nathan Arriola Notes Date Note Type Note Provider Name and Address Organization Details Recorded Time 07/23/2023 text/html Generic HPI TemplateReported by Patient here for annual pe. Jaun Calderon PA-C [address] [address], [place], [address], [facility] 07/23/2023 14:05:23 06/24/2024 text/html Anxiety/Depressi onRepor gilles by PatientHPIFor quality, patient reportsincreased anxiety. For context, patient reportsmajor life stressorsandfamily problems. For severity, patient reportsdenies suicidal ideations. For associated symptoms, patient reportsdenies homicidal ideations. as per recent pt portal message:Libia Zamorano. Please see message from February 23, 2017: We had discussed some anxiety, tension, irritability, etc. ... poor eating and drinking habits may be at least part cause of poor sleep and family tension.... family members feel that some medication and counseling/therapy may be helpful... M ore recently, It was suggested I exhibit some Adult O.D.D. tendancies. A renewed effort with a therapist has been suggested. Can you prove a referral? Jaun Calderon PA-C [address] [address], [place], [address], [facility] 06/24/2024 14:44:17 09/11/2024 text/html Generic HPI TemplateReported by Patient here for annual pe. 64 y/o male presents for annual physical. Reports poor diet and limited exercise recently. He states that he is planning to implement improvements in diet and exercise going forward. He endorses frequent sleep interruptions around 3 am which he states are much more common when he drinks alcohol prior to sleep. He reports that he is also trying to cut down on alcohol intake. Reports occasional night sweats, worse after drinking alcohol. States increase stress levels due to work-related tasks. Jaun Calderon PA-C [address], [address], [facility] 09/11/2024 13:05:48 03/11/2025 text/html Hypertension F/UReported by PatientHPIFor associated symptoms, patient reportsno dizziness,no lightheadedness,no chest pain,no shortness of breath,no palpitations,no edema, andno calf pain with exertion. For lifestyle, patient reportsregular exerciseandlimiting/nena iding salt. For medications, patient reportstaking medications as directedandno side effects from medication. here for 6 month f/u visithas not done repeat labs yet as dir Jaun Calderon PA-C [address] [address], [place], [address], [facility] 03/11/2025 09:48:25 04/08/2025 text/html Hypertension F/UReported by PatientHPIFor associated symptoms, patient reportsno dizziness,no lightheadedness,no chest pain,no shortness of breath,no palpitations,no edema, andno calf pain with exertion. For lifestyle, patient reportsregular exerciseandlimiting/nena iding salt. For medications, patient reportstaking medications as directedandno side effects from medication. Jaun Calderon PA-C [address] [address], [place], [address], [facility] 04/08/2025 15:10:33
== END 2025-05-20 15:47 | disposition home or self-care (01) ==
LOC: HO.HSM 15:17
PROVIDERS: PCP Physician Assistant Medical; Visit Provider Psychiatry & Neurology Neurology
DX: G71.12 Myotonia congenita (principal); G31.84 Mild cognitive impairment of uncertain or unknown etiology; G47.33 Obstructive sleep apnea (adult) (pediatric); Z99.89 Dependence on other enabling machines and devices
CPT/HCPCS: 99204